=== PATIENT | male | born 1985 | race Caucasian/White ===

== ENCOUNTER 2017-06-26 11:29 | Emergency (ER) | payer BC ==
[2017-06-26 11:59] VITALS: BP 146/84
[2017-06-26] MEDS ORDERED: Lidocaine 1% 10 ML MDV INJECT ONE (12:05)
--- NOTE | 2017-06-26 12:50 | EDM.PDOC ---
ED HPI GENERAL MEDICAL PROBLEM - General Chief Complaint: Laceration Stated Complaint: LEFT MIDDLE FINGER LAC Time Seen by Provider: 06/26/17 12:08 Source of Information: Reports: Patient History Limitations: Reports: No Limitations - History of Present Illness INITIAL COMMENTS - FREE TEXT/NARRATIVE: 32-year-old male presents for evaluation and treatment of a laceration to the left hand third finger. Reports the injury occurred around 1100 today. He presented to the ER as they were having trouble stopping the bleeding. He was using a knife when he accidentally cut the tip of his left hand middle finger off. He has been holding pressure but continues to bleed. Tetanus is up-to-date. Patient is right-handed. Onset: Today Location: Reports: Upper Extremity, Left Left 3-Middle finger Pain Score (Numeric/FACES): 0 - Related Data Allergies Allergy/AdvReac Type Severity Reaction Status Date / Time No Known Allergies Allergy Verified 08/29/14 23:28 Home Meds: Home Meds Levothyroxine [Synthroid] 50 mcg PO DAILY 06/26/17 [History] Ranitidine HCl [Zantac] 150 mg PO DAILY 06/26/17 [History] Sucralfate [Carafate] 1 gram PO BID 06/26/17 [History] Past Medical History - Past Health History Medical/Surgical History: Denies Medical/Surgical History Gastrointestinal History: Reports: GERD Endocrine/Metabolic History: Reports: Hypothyroidism Social & Family History - Tobacco Use Smoking Status *Q: Never Smoker Second Hand Smoke Exposure: No - Caffeine Use Caffeine Use: Reports: Coffee, Soda - Alcohol Use Days Per Week of Alcohol Use: 1 Number of Drinks Per Day: 2 Total Drinks Per Week: 2 - Recreational Drug Use Recreational Drug Use: No Recreational Drug Type: Reports: Marijuana/Hashish ED ROS GENERAL - Review of Systems Review Of Systems: See Below Skin: Reports: Wound (avulsion to the left hand distal 3rd finger) ED EXAM, SKIN/RASH Exam: See Below Exam Limited By: No Limitations General Appearance: Alert, WD/WN, No Apparent Distress Respiratory/Chest: No Respiratory Distress Cardiovascular: Normal Peripheral Pulses, Regular Rate, Rhythm Peripheral Pulses: 2+: Radial (L) Extremities: Normal Range of Motion (he is able to make a fist, flex and extend the fingers of the left hand), Normal Capillary Refill Neurological: Alert, Oriented, Normal Cognition Psychiatric: Normal Affect, Normal Mood Skin: Warm, Dry, Wound/Incision (Approximately dime-sized avulsion to the left hand distal third fingertip, actively bleeding) Location, Skin: Upper Extremity, Left ED SKIN PROCEDURES - Laceration/Wound Repair Left Distal Finger Lac/Wound length In cm: 1 Appearance: Clean, Other (Circular) Distal NVT: Neuro & Vascular Intact, No Tendon Injury Anesthetic Type: Local Local Anesthesia - Lidocaine (Xylocaine): 1% Plain Local Anesthetic Volume: 2cc Skin Prep: Chlorhexidine (Hibiciens), Saline, Sterile Drape Closed with: Other (Silver nitrate cautery sticks 5) Sterile Dressing Applied: Nurse Tetanus Status Addressed: Yes Complications: No Course - Vital Signs Last Recorded V/S: Last Vital Signs Temp 36.5 C 06/26/17 11:57 Pulse 74 06/26/17 11:57 Resp 20 06/26/17 11:57 BP 146/84 H 06/26/17 11:57 Pulse Ox 96 06/26/17 11:57 - Orders/Labs/Meds Meds: Medications Discontinued Medications Generic Name Dose Route Start Last Admin Trade Name Dangelo PRN Reason Stop Dose Admin Lidocaine HCl 10 ml 06/26/17 12:05 06/26/17 12:27 Xylocaine 1% INJECT 06/26/17 12:06 10 ml ONETIME ONE Administration - Re-Assessments/Exams Free Text/Narrative Re-Assessment/Exam: 06/26/17 12:43 Wound was cauterized with silver nitrate sticks (5) after being anesthetized with lidocaine. Patient tolerated this well. There were no complications. Discharge instructions as documented. Departure - Departure Time of Disposition: 12:48 Disposition: Home, Self-Care 01 Condition: Good Clinical Impression: Skin avulsion - Discharge Information Instructions: Deep Skin Avulsion Referrals: Ericka Sheets L[employer] MECHANIC [Primary Care Provider] - Forms: ED Department Discharge Additional Instructions: leave the wound alone for the next 24 hours wash with gentle soap and water twice a day. Antibacterial trauma such as Neosporin or bacitracin to the wound twice a day. If it does begin to bleed again apply pressure. Monitor for signs of infection such as increased swelling, pus or redness. Present to the clinic or the ER should these develop. This wound will take several weeks for the wound to heal. follow-up with your primary care provider as needed. Please return to the ER if you symptoms change or worsen.
== END 2017-06-26 12:55 | disposition home or self-care (01) ==
LOC: SUPCPDRO 11:29 → JD.ED 11:29
DX: S61.213A Laceration without foreign body of left middle finger without damage to nail, initial encounter (principal); E03.9 Hypothyroidism, unspecified; K21.9 Gastro-esophageal reflux disease without esophagitis; Z79.899 Other long term (current) drug therapy; W26.0XXA Contact with knife, initial encounter
CPT/HCPCS: 12001; 99282-25; 99283

== ENCOUNTER 2020-08-10 19:30 | Emergency (ER) | payer SELFPAY ==
[2020-08-10 19:54] VITALS: BP 145/88; PULSE 74
--- NOTE | 2020-08-10 20:47 | EDM.PDOC ---
ED HPI GENERAL MEDICAL PROBLEM - General Chief Complaint: Upper Extremity Injury/Pain Stated Complaint: HAND INJURY Time Seen by Provider: 08/10/20 20:15 Source of Information: Reports: Patient, RN Notes Reviewed History Limitations: Reports: No Limitations - History of Present Illness INITIAL COMMENTS - FREE TEXT/NARRATIVE: Patient is a 35-year-old male presenting to the emergency department with complaints of pain and swelling to his right hand. He reports that the trolling motor on his boat came down on it. Pain and swelling is localized to the fourth and fifth metacarpals. Denies any numbness or tingling to the hand. 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 Right Hand Pain Score (Numeric/FACES): 8 - Related Data Allergies Allergy/AdvReac Type Severity Reaction Status Date / Time No Known Allergies Allergy Verified 08/10/20 19:51 Home Meds: Home Meds Levothyroxine [Synthroid] 50 mcg PO DAILY 06/26/17 [History] Past Medical History - Past Health History Medical/Surgical History: Denies Medical/Surgical History HEENT History: Reports: Impaired Vision Cardiovascular History: Reports: None Respiratory History: Reports: None Gastrointestinal History: Reports: GERD Genitourinary History: Reports: None Neurological History: Reports: None Psychiatric History: Reports: None Endocrine/Metabolic History: Reports: Hypothyroidism Hematologic History: Reports: None Immunologic History: Reports: None Dermatologic History: Reports: None - Infectious Disease History Infectious Disease History: Reports: Chicken Pox - Past Surgical History HEENT Surgical History: Reports: None Musculoskeletal Surgical History: Reports: Arthroscopic Knee, Other (See Below) Other Musculoskeletal Surgeries/Procedures:: elbow Social & Family History - Family History Family Medical History: No Pertinent Family History - Tobacco Use Tobacco Use Status *Q: Never Tobacco User - Caffeine Use Caffeine Use: Reports: Coffee - Recreational Drug Use Recreational Drug Use: No Review of Systems - Review of Systems Review Of Systems: Comprehensive ROS is negative, except as noted in HPI. ED EXAM, GENERAL - Physical Exam Exam: See Below Exam Limited By: No Limitations General Appearance: Alert, WD/WN, No Apparent Distress Respiratory/Chest: No Respiratory Distress, Lungs Clear, Normal Breath Sounds, No Accessory Muscle Use, Chest Non-Tender Cardiovascular: Normal Peripheral Pulses, Regular Rate, Rhythm, No Edema, No Gallop, No JVD, No Murmur, No Rub Extremities: Other (Swelling and tenderness to palpation over the right fourth and fifth metacarpals. CMS intact distal to the injury.) Neurological: Alert, Oriented, CN II-XII Intact, Normal Cognition, Normal Gait, Normal Reflexes, No Motor/Sensory Deficits Psychiatric: Normal Affect, Normal Mood Course - Vital Signs Last Recorded V/S: Last Vital Signs Temp 98.8 F 08/10/20 19:53 Pulse 74 08/10/20 19:53 Resp 18 08/10/20 19:53 BP 145/88 H 08/10/20 19:53 Pulse Ox 99 08/10/20 19:53 - Re-Assessments/Exams Free Text/Narrative Re-Assessment/Exam: Patient is a 35-year-old male presenting to the emergency department complaints of pain and swelling over his fourth and fifth metacarpals. Reports that earlier in the day, his trolling motor came down on his hand. Since that time he has been experiencing pain. I have ordered x-rays of the right head. 08/10/20 21:18 X-ray of the right hand shows a nondisplaced fracture of the fifth metacarpal midshaft. Patient has been placed in a custom Ortho-Glass ulnar gutter splint. I will have him follow-up with orthopedist, Dr. Bateman. Discharge instructions as documented. Departure - Departure Time of Disposition: 21:19 Disposition: Home, Self-Care 01 Condition: Good Clinical Impression: Fracture of metacarpal bone Qualifiers: Encounter type: initial encounter Metacarpal bone: fifth Fracture type: closed Metacarpal location: shaft Fracture alignment: nondisplaced Laterality: right Qualified Code(s): S62.356A - Nondisplaced fracture of shaft of fifth metacarpal bone, right hand, initial encounter for closed fracture - Discharge Information *PRESCRIPTION DRUG MONITORING PROGRAM REVIEWED*: No *COPY OF PRESCRIPTION DRUG MONITORING REPORT IN PATIENT [facility]: No Instructions: Metacarpal Fracture Referrals: Devendra Bateman MD [Physician] - Forms: ED Department Discharge Additional Instructions: You were seen in the emergency department today for pain and swelling to your right hand. X-rays were completed and show nondisplaced fracture of the shaft of your fifth metacarpal. You have been placed in a splint. This should remain on and be kept clean and dry at all times. Recommend ice and elevation when at rest for the next few days. Tylenol and ibuprofen may be used for discomfort. Call tomorrow to schedule follow-up appointment with orthopedist, Dr. Bateman. Return to ER as needed. Sepsis Event Note (ED) - Evaluation Sepsis Screening Result: No Definite Risk
--- NOTE | 2020-08-11 07:46 | CR ---
Right hand: 3 views of the right hand were obtained. Comparison: Prior right hand study of 12/14/11. Acute fracture is identified within the midshaft of the right fifth metacarpal. Minimal apex posterior angulation is seen. Old ununited fracture is noted off the posterior wrist bone noted on the lateral view. Soft tissue swelling is noted. No additional fracture or other bony abnormality is appreciated. Impression: 1. Slightly angulated fracture involving the midshaft of the right fifth metacarpal. 2. 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 3. Diffuse soft tissue swelling. Diagnostic code #3
== END 2020-08-10 21:26 | disposition home or self-care (01) ==
LOC: JD.ED 19:30
DX: S62.356A Nondisplaced fracture of shaft of fifth metacarpal bone, right hand, initial encounter for closed fracture (principal); E03.9 Hypothyroidism, unspecified; Z79.899 Other long term (current) drug therapy; W20.8XXA Other cause of strike by thrown, projected or falling object, initial encounter
CPT/HCPCS: 29125; 73130-26-RT; 73130-RT; 99283; 99283-25

== ENCOUNTER 2024-07-10 19:07 | Emergency (ER) | payer BC ==
[2024-07-10 19:19] VITALS: BP 146/88; PULSE 81
[2024-07-10] MEDS ORDERED: Sodium Chloride 0.9% 1,000 ML IV ONE ×2 (20:38→20:39)
[2024-07-10] MEDS ORDERED: Ketorolac 30 MG/ML SDV IM ONE (20:44)
[2024-07-10] MEDS ORDERED: Sodium Chloride 0.9% 10 ML Syringe FLUSH PRN (20:52)
[2024-07-10] MEDS: Sodium Chloride 0.9% 1,000 ML IV ONE (21:05)
[2024-07-10] MEDS: Ketorolac 15 MG/ML SDV IVPUSH ONE (21:05)
[2024-07-10 21:17] LABS: BASOPHILS ABSOLUTE AUTO 0.1 K/mm3 (0.0-0.2); BASOPHILS PERCENT AUTO 0.9 % (0.0-1.0); EOSINOPHILS ABSOLUTE AUTO 0.3 K/mm3 (0.0-0.4); EOSINOPHILS PERCENT AUTO 3.9 % (0.0-6.0); HEMATOCRIT 44.3 % (42.0-52.0); IMMATURE GRAN ABSOLUTE AUTO 0.02 K/mm3 (0.00-0.05); IMMATURE GRAN PERCENT AUTO 0.3 % (0.0-0.4); LYMPHOCYTES PERCENT AUTO 29.2 % (24.0-44.0); MEAN CORPUSCULAR HGB CONC 33.9 g/dl (32.0-36.0); MEAN CORPUSCULAR VOLUME 85.7 fl (83.0-99.0); MEAN PLATELET VOLUME 8.9 fl (9.4-12.4); MONOCYTES ABSOLUTE AUTO 0.5 K/mm3 (0.0-0.8); MONOCYTES PERCENT AUTO 7.3 % (0.0-8.0); NEUTROPHILS PERCENT AUTO 58.4 % (41.0-71.0); PLATELET COUNT,PLT 207 K/mm3 (150-400); RED BLOOD CELL COUNT 5.17 M/mm3 (4.52-5.90); WHITE BLOOD CELL COUNT,WBC 6.88 K/mm3 (3.9-11.3)
[2024-07-10 21:24] LABS: APPEARANCE,URINE CLEAR (Clear); BILIRUBIN,URINE NEGATIVE (Negative); COLOR,URINE YELLOW (Yellow); GLUCOSE,URINE NEGATIVE (Negative); KETONES,URINE NEGATIVE (Negative); LEUKOCYTE ESTERASE,URINE NEGATIVE (Negative); NITRITE,URINE NEGATIVE (Negative); OCCULT BLOOD,URINE NEGATIVE (Negative); PROTEIN,URINE NEGATIVE (Negative); UROBILINOGEN,URINE 0.2 (0.2-1.0)
[2024-07-10 21:56] LABS: A/G RATIO 1.1 (1-2); ALBUMIN 4.1 g/dl (3.4-5.0); ANION GAP 13.2 (5-15); BILIRUBIN TOTAL 0.5 mg/dL (0.2-1.0); BUN/CREATININE RATIO 15.4 (14-18); CALCIUM 9.3 mg/dL (8.5-10.1); CREATININE 1.3 mg/dL (0.7-1.3); EST CRCL DRUG DOSING (CG) 88.7 mL/min; POTASSIUM,K 4.2 mEq/L (3.5-5.1); PROTEIN TOTAL,TP 7.9 g/dl (6.4-8.2)
[2024-07-10] MEDS: Iopamidol 612 MG/ML 100 ML Bottle IVPUSH ONE (21:57)
== END 2024-07-10 23:24 | disposition home or self-care (01) ==
LOC: JD.ED 19:07 → MERGE 19:07 → JD.ED 23:24
DX: M54.41 Lumbago with sciatica, right side (principal)
CPT/HCPCS: 36415; 74177; 80053; 81003; 83690; 85025; 96361; 96374; 99284; J1885; J7030; Q9967